=== PATIENT | male | born 1975 | race Caucasian/White ===

== ENCOUNTER 2025-08-17 10:34 | Outpatient (REF) | payer OTHER, SELFPAY ==
--- OUTSIDE RECORDS SUMMARY | 2025-08-17 13:52 | XMS_ITS | Clinical Summary ---
Author Organization [facility] Prior to 02/10/25 Address [address] [place] [address] Care Team Providers Care It Software Engineer Name Role Phone Jonathan Castro MD Primary Care Provider [phone] Allergies No known active allergies Medications Medication Sig Dispensed Refills Start Date End Date Status hydrOXYzine (VISTARIL) 50 MG capsuleIndications:A nxiety Take 1 capsule (50 mg total) by mouth every 6 (six) hours as needed for itching (anxiety/agitatio n). 30 capsule 0 03/06/2020 Active escitalopram (LEXAPRO) tablet 10 mgIndications:Genera lized Anxiety Disorder,Major Depressive Disorder Take 1.5 tablets (15 mg total) by mouth every night at bedtime. 45 tablet 0 03/06/2020 Active traZODone (DESYREL) 100 MG tabletIndications:In somnia Take 1 tablet (100 mg total) by mouth every night at bedtime as needed for sleep (insomnia). 30 tablet 0 03/06/2020 Active QUEtiapine (SEROquel) 25 MG tabletIndications:De pressive Phase Bipolar Mood Disorder,Generalized Anxiety Disorder Take 1 tablet (25 mg total) by mouth 2 (two) times a day. 60 tablet 0 03/06/2020 Active QUEtiapine (SEROquel) 50 MG tabletIndications:Ge neralized Anxiety Disorder,Major Depressive Disorder Take 1 tablet (50 mg total) by mouth every night at bedtime. 30 tablet 0 03/06/2020 Active folic acid (FOLVITE) tablet 1 mgIndications:supple ment Take 1 tablet (1 mg total) by mouth daily. 30 tablet 0 03/06/2020 Active propranolol (INDERAL) 20 MG tabletIndications:Hy pertension,anxiety Take 1 tablet (20 mg total) by mouth 2 (two) times a day. 60 tablet 0 03/06/2020 Active thiamine 100 MG tabletIndications:matias pplement Take 1 tablet (100 mg total) by mouth daily. 30 tablet 0 03/06/2020 Active Active Problems Problem Noted Date Diagnosed Date MDD (major depressive disord er), recurrent severe, without psychosis 02/28/2020 Tinnitus of both ears 09/21/2018 Overview: Overview: Referred to ent. 10/01 Sleeping difficulty 05/21/2016 Erectile dysfunction 05/13/2016 Vitamin D deficiency 05/12/2016 Family History Medical History Relation Name Comments Immunodeficiency Neg Hx Social History Tobacco Use Types Packs/Day Years Used Date Smoking Tobacco: Never Smokeless Tobacco: Never Tobacco Cessation:Counseling Given: No Alcohol Use Standard Drinks/Week Comments Yes 28 (1 standard drink = 0.6 oz pu re alcohol) 3 to 4 drinks per day Sex and Gender Information Value Date Recorded Sex Assigned at Male 02/07/2019 12:26 PM EDT Gender Identity Male 02/28/2020 8:08 PM EDT Sexual Orientation Straight 02/28/2020 8: 08 PM EDT Job Start Date Occupation Industry Not on file Not on file Not on file Last Filed Vital Signs Vital Sign Reading Time Taken Comments Blood Pressure 115/79 03/06/2020 9:22 AM EDT Pulse 93 03/06/2020 9:22 AM EDT Temperature 36.9 C (98.4 F) 03/06/2020 9:21 AM EDT Respiratory Rate 17 03/06/2020 9:22 AM EDT Oxygen Saturation 100% 03/06/2020 9:22 AM EDT Inhaled Oxygen Concentration - - Weight 93.2 kg (205 lb 6.4 oz) 03/03/2020 8:39 A M EDT Height 177.8 cm (5' 10 ) 02/28/2020 11:19 PM EDT Body Mass Index 29.47 02/28/2020 11:19 PM EDT Plan of Treatment Not on file Advance Directives For more information, please contact: [phone] Latest Code Status on File Code Status Date Activated Date Inactivated Comments Full Code 02/28/2020 11:40 PM 03/06/2020 5:57 PM This code status was ascertained in the following way: per unit protocol. Care Teams It Software Engineer Relationship Specialty Start Date End Date Jonathan Castro MD PCP - General Photoengraving Photographer 02/06/18
--- OUTSIDE RECORDS SUMMARY | 2025-08-17 13:52 | XMS_ITS | Clinical Summary ---
Author Organization [facility] [address] [facility] [address] Address [address] [place] [address] Phone Care Team Providers Care Transition Rn Name Role Phone Karen Castro MD Primary Care Provider [phone] Allergies No known active allergies Medications No known medications Active Problems Problem Noted Date Diagnosed Date Prediabetes 05/19/2022 Alcohol abuse 04/24/2021 Depression 03/18/2020 Overview (06/12/2024): hosp 03/02 Tinnitus of both ears 09/21/2018 Overview (06/12/2024): Referred to ent. 10/01 Sleeping difficulty 05/21/2016 Erectile dysfunction 05/13/2016 Vitamin D deficiency 05/12/2016 Encounters Date Type Department Care Team Description 08/08/2025 Results Follow-Up Pediatrics - [address] [address] Lacey Arenas PA 08/07/2025 9:15 AM EST Lab Draw Station - [address] [address] Erectile dysfunction, unspecified erectile dysfunction type; Screening for diabetes mellitus 07/30/2025 2:00 PM EST Office Visit Adult Medicine - [address] [phone] Lacey Arenas PA Encounter for annual physical exam (Primary Dx); Screening for diabetes mellitus; Erectile dysfunction, unspecified erectile dysfunction type 07/05/2025 4:06 PM EDT - 07/05/2025 11:59 PM EDT Hospital Encounter Radiology Department - [address] [address] Radiculopathy, lumbar region; Spondylosis, unspecified Discharge Disposition: Home or Self Care 2025 1:30 PM EDT Telemedicine Adult Medicine - [place] [address] [place] [address] Donna De La Paz NP Acute low back pain with sciatica, sciatica laterality unspecified, unspecified back pain laterality (Primary Dx) 06/15/2025 Telephone Adult Medicine - [place] [address] [place] [address] Donna De La Paz NP from Last 3 Months Immunizations Immunization Administration Dates Next Due Influenza Quadravalent, MDCK , 0.5ml, preservative free (Flucelvax) 6mo and older 05/31/2023 Influenza trivalent, with pr eservative (Fluzone; Afluria) 6mo and older 06/27/2024 Influenza, Unspecified 05/14/2025,07/19/2018 Tdap Tetanus diptheria acell ular pertussis (Boostrix; Adacel) 7yo and older 03/15/2018 Surgical History Surgery Date Site/Laterality Comments HAND SURGERY PROCEDURE: RI UNLISTED PROCEDURE HANDS/FINGERS Medical History Medical History Date Comments Vitamin D deficiency 05/12/2016 DX:Vitamin D deficiency Erectile dysfunction 05/13/2016 DX:Erectile dysfunction Family History Medical History Relation Name Comments Other: denies Other 1 Relation Name Status Comments Other 1 Other 2 Social History Tobacco Use Types Packs/Day Years Used Date Smoking Tobacco: Never Smokeless Tobacco: Never Tobacco Cessation:Counseling Given: Not Answered Alcohol Use Standard Drinks/Week Comments Yes 7 (1 standard drink = 0.6 oz pur e alcohol) Housing Instability Answer Date Recorde d Are you worried that in the next 2 months you may not have stable housing? No 06/11/2025 Food Access & Nutrition Answer Date Rec orded Do you have access to a vari ety of food including fruits and vegetables? No 06/11/2025 Financial Risk Answer Date Recorded How hard is it for you to pa y for the very basics like food, housing, medical care, and air conditioning / heating? Not very hard 06/11/2025 Food Risk Answer Date Recorded Within the past 12 months we worried whether our food would run out before we got money to buy more. Never true 06/11/2025 Within the past 12 months th e food we bought just didn't last and we didn't have money to get more. Never true 06/11/2025 Living Situation Answer Date Recorded What is your living situation? Unrecognized valu e 06/11/2025 Sex and Gender Information Value Date Recorded Sex Assigned at Not on file Legal Sex Male 10:30 PM EST Gender Identity Not on file Sexual Orientation Not on file Obstetrics History Last Filed Vital Signs Vital Sign Reading Time Taken Comments Blood Pressure 118/83 07/30/2025 2:00 PM EST Pulse 70 07/30/2025 2:00 PM EST Temperature 36.7 C (98 F) 01/16/2025 9:53 AM EDT Respiratory Rate - - Oxygen Saturation 98% 07/30/2025 2:00 PM EST Inhaled Oxygen Concentration - - Weight 92.4 kg (203 lb 12.8 oz) 07/30/2025 2:00 PM EST Height 177.8 cm (5' 10 ) 01/16/2025 9:53 AM EDT Body Mass Index 29.24 01/16/2025 9:53 AM EDT Plan of Treatment Health Maintenance Due Date Last Done Comments Hepatitis A Vaccines (1 of 2 - Risk 2-dose series) 1994 Hepatitis B Vaccines (1 of 3 - 19+ 3-dose series) 1994 HIV Screening 08/21/2022 Hepatitis C Screening 08/21/2022 COVID-19 Vaccine (3 - 2024- season) 2025 10/30/2020, 10/03/2020 Pneumococcal Vaccine: 50+ Years (1 of 1 - PCV) 2025 Zoster Vaccines (1 of 2) 2025 Social Influencers of Health Screening 06/11/2026 06/11/2025 DTaP,Tdap,and Td Vaccines (2 - Td or Tdap) 03/15/2028 03/15/2018 Cholesterol Screening (Lipid Panel) 03/23/2029 03/23/2024, 03/23/2024, 03/03/2020 Colorectal Cancer Screening: Colonoscopy 01/26/2033 01/26/2023 RSV Immunization Adult Patients (1 - 1-dose 75+ series) 2050 Influenza Vaccine Completed 05/14/2025, , 05/31/2023, Additional history exists Depression Screening Completed 06/11/2025 HIB Vaccines Aged Out No longer eligi ble based on patient's age to complete this topic HPV Vaccines Aged Out No longer eligi ble based on patient's age to complete this topic IPV Vaccines Aged Out No longer eligi ble based on patient's age to complete this topic MMR Vaccines Aged Out No longer eligi ble based on patient's age to complete this topic Meningococcal ACWY Vaccine Aged Out N o longer eligible based on patient's age to complete this topic Meningococcal B Vaccine Aged Out No l onger eligible based on patient's age to complete this topic RSV Immunization Patients Under 20 months Aged Out No longer eligible based on patient's age to complete this topic Varicella Vaccines Aged Out No longer eligible based on patient's age to complete this topic Procedures Procedure Name Priority Date/Time Associated Diagnosis Comments HEMOGLOBIN A1C Routine 08/07/2025 9:14 AM EST Screening for diabetes mellitus THYROID STIMULATING HORMONE WITH REFLEX TO FREE T4 AND FREE T3 Routine 08/07/2025 9:14 AM EST Erectile dysfunction, unspecified erectile dysfunction type COMPREHENSIVE METABOLIC PANEL Routine 08/07/2025 9:14 AM EST Screening for diabetes mellitus TESTOSTERONE FREE, BIOAVAILABLE AND TOTAL Routine 08/07/2025 9:14 AM EST Erectile dysfunction, unspecified erectile dysfunction type MR LUMBAR SPINE WO CONTRAST Routine 07/05/2025 5:02 PM EDT Radiculopathy, lumbar region Spondylosis, unspecified LIPID PANEL Routine 03/23/2024 HM COLONOSCOPY Routine 01/26/2023 from Last 3 Months or Most Recently Relevant to Health Maintenance Results * Thyroid stimulating hormone with reflex to free t4 and free t3 (08/07/2025 9:14 AM EST) TSH 2.88 0.40 - 4.00 mcIU/mL 08/07/2025 12:22 PM [facility] Blood Venous blood specimen / Unknown Venipuncture / Unknown 08/07/2025 9:14 AM EST 08/07/2025 9:14 AM EST us Lacey FLYNN LAB BLOOD ORDERABLES Final Resul t [facility] [address] [place] [address], * Testosterone free, bioavailable and total (08/07/2025 9:14 AM EST) Testosterone 307 229 - 902 ng/dL 08/07/2025 2:51 PM [facility] Comment:Over the counter sup plements containing high doses of biotin may interfere with this assay. If interference is suspected, patients shoud be retested after refraining from biotin supplements for 72 hours. Testosterone, Free 5.3 4.6 - 22.4 ng/dL 08/07/2025 2:51 PM [facility] Testosterone, Bioavailable 124 110 - 575 ng/dL 08/07/2025 2:51 PM [facility] Sex Hormone Binding 40.3 See Comment nmol/L 08/07/2025 2:51 PM [facility] Comment: FEMALES: pre-menopausal 10.8 - >180 post-menopausal 23.2 - 159.1 MALES: 21-49 years 14.6 - 94.6 50-89 years 21.6 - 113.1 CHILDREN: No established reference range Over the counter supplements containing high doses of biotin may interfere with this assay. If interference is suspected, patients should be retested after refraining from biotin supplements for 72 hours. Albumin 4.3 3.2 - 5.0 g/dL 08/07/2025 2:51 PM EST [facility] Blood Venous blood specimen / Unknown Venipuncture / Unknown 08/07/2025 9:14 AM EST 08/07/2025 9:14 AM EST Lacey FLYNN LAB BLOOD ORDERABLES Final Resul t Performing Organization Address [facility]/ZIP Co de Phone Number [facility] [address] [place] [address], [place] [phone] * Hemoglobin A1c (08/07/2025 9:14 AM EST) Pathologist [facility] Hemoglobin A1C 5.5 <6.5 % LAB CHEMISTRY METHOD 08/07/2025 1:40 PM EST [facility] Mean Bld Glu Estim. 111 mg/dL LAB CHEMISTRY METHOD 08/07/2025 1:40 PM [facility] Blood Venous blood specimen / Unknown Venipuncture / Unknown 08/07/2025 9:14 AM EST 08/07/2025 9:14 AM EST Lacey FLYNN LAB BLOOD ORDERABLES Final Resul t Performing Organization Address [facility]/ZIP Co de Phone Number [facility] [address] [place] [address], [place] [phone] * (ABNORMAL) Comprehensive metabolic panel (08/07/2025 9:14 AM EST) [facility] Sodium 141 133 - 145 mmol/L 08/07/2025 12:31 PM EST [facility] Potassium 4.4 3.5 - 5.5 mmol/L 08/07/2025 12:31 PM EST [facility] Chloride 105 96 - 110 mmol/L 08/07/2025 12:31 PM [facility] CO2 28 21 - 32 mmol/L 08/07/2025 12:31 PM [facility] Anion Gap 8 3 - 11 08/07/2025 12:31 PM [facility] Glucose 107(H) 70 - 100 mg/dL 08/07/2025 12:31 PM [facility] BUN 34(H) 5 - 25 mg/dL 08/07/2025 12:31 PM [facility] Creatinine 1.09 0.70 - 1.30 mg/dL 08/07/2025 12:31 PM [facility] eGFR 83 >=60 mL/min/1. 73m2 08/07/2025 12:31 PM [facility] Comment:Calculation based on the Chronic Kidney Disease Epidemiology Collaboration (CKD-EPI) equation refit without adjustment for race. BUN/Creatinine Ratio 31.2 08/07/2025 12:31 PM [facility] Calcium 9.7 8.5 - 10.5 mg/dL 08/07/2025 12:31 PM [facility] AST (SGOT) 31 10 - 42 unit/L 08/07/2025 12:31 PM [facility] ALT (SGPT) 34 10 - 60 unit/L 08/07/2025 12:31 PM [facility] Alkaline Phosphatase 75 42 - 121 unit/L 08/07/2025 12:31 PM [facility] Total Protein 6.8 6.0 - 8.0 g/dL 08/07/2025 12:31 PM [facility] Albumin 4.3 3.2 - 5.0 g/dL 08/07/2025 12:31 PM [facility] Total Bilirubin 0.5 0.0 - 1.4 mg/dL 08/07/2025 12:31 PM [facility] Blood Venous blood specimen / Unknown Venipuncture / Unknown 08/07/2025 9:14 AM EST 08/07/2025 9:14 AM EST us Lacey FLYNN LAB BLOOD ORDERABLES Final Resul t [facility] [address] [place] [address], [place] [phone] * MR Lumbar Spine wo Contrast (07/05/2025 5:02 PM EDT) Anatomical Region Laterality Modality L-spine, Spine Magnetic Resonan ce 07/08/2025 2:49 PM EDT Narrative 07/08/2025 2:54 PM EDT MRI of the lumbosacral spine without intravenous contrast. History lumbar radiculitis. Examination was performed on 1.5 Leda magnet. No previous MRI examinations are available for comparison. Conus medullaris terminates at L1-2 level. Vertebral bodies are maintained in height. At T12-L1 level no focal disc herniation spinal stenosis or nerve root compression. At L1-2 level there is mild bulging of the disc and mild hypertrophy of the facet joints. No focal disc herniation spinal stenosis or nerve root compression. L2-3 disc is desiccated. There is diffuse bulging of the disc, there are hypertrophic changes in the facet joints. There is stenosis of the lateral recesses and L2 neural foramina. There is possible compression of the L2 nerve roots. There is mild spinal stenosis. At L3-4 level disc is decreased in T2 signal. There is broad base protrusion of the disc. There is hypertrophy of the facet joints. There is stenosis of the lateral recesses and L3 neural foramina. There is possible compression of the L3 nerve roots. There is mild spinal stenosis. At L4-5 level disc is decreased in T2 signal. There is arm tear of the annulus fibrosis and small central extrusion of the disc. There are hypertrophic changes in the facet joints. There is narrowing of the lateral recesses and L4 neural foramina. There is compression of the L4 nerve roots. There is no spinal stenosis. At L5-S1 level there is minimal anterior displacement of L5 over S1. There is no focal disc herniation spinal stenosis or nerve root compression. Perivertebral soft tissues are unremarkable. CONCLUSIONS: Multilevel bony and discs degenerative changes with mild spinal stenosis at L2-3 and L3-4 levels. Stenosis of the lateral recesses and neural foramina at multiple levels with possible compression of the L2 nerve roots, possible compression of the L3 nerve roots, compression of the L4 nerve roots. -------- FINAL REPORT -------- Dictated By: Dodie Perea Dictated Date: 07/08/2025 14:49 ET Assigned Physician: Dodie Perea Reviewed and Electronically Signed By: Dodie Perea Signed Date: 07/08/2025 14:54 ET Workstation ID: [id number] Transcribed By: Self Edit Transcribed Date: 07/08/2025 14:49 ET Procedure Note Dodie Perea MD - 07/08/2025 MRI of the lumbosacral spine without intravenous contrast. History lumbar radiculitis. Examination was performed on 1.5 Leda magnet. No previous MRIexaminations are available for comparison. Conus medullaris terminates at L1-2 level. Vertebral bodies are maintainedin height. At T12-L1 level no focal disc herniation spinal stenosis or nerve rootcompression. At L1-2 level there is mild bulging of the disc and mild hypertrophy ofthe facet joints. No focal disc herniation spinal stenosis or nerve rootcompression. L2-3 disc is desiccated. There is diffuse bulging of the disc, there arehypertrophic changes in the facet joints. There is stenosis of the lateralrecesses and L2 neural foramina. There is possible compression of the G3xgeis roots. There is mild spinal stenosis. At L3-4 level disc is decreased in T2 signal. There is broad baseprotrusion of the disc. There is hypertrophy of the facet joints. There isstenosis of the lateral recesses and L3 neural foramina. There is possiblecompression of the L3 nerve roots. There is mild spinal stenosis. At L4-5 level disc is decreased in T2 signal. There is arm tear of theannulus fibrosis and small central extrusion of the disc. There arehypertrophic changes in the facet joints. There is narrowing of thelateral recesses and L4 neural foramina. There is compression of the U9jzzdi roots. There is no spinal stenosis. At L5-S1 level there is minimal anterior displacement of L5 over S1. Thereis no focal disc herniation spinal stenosis or nerve root compression. Perivertebral soft tissues are unremarkable. CONCLUSIONS: Multilevel bony and discs degenerative changes with mild spinal stenosisat L2-3 and L3-4 levels. Stenosis of the lateral recesses and neuralforamina at multiple levels with possible compression of the L2 nerveroots, possible compression of the L3 nerve roots, compression of the F2dulal roots. -------- FINAL REPORT -------- Dictated By: Dodie Perea Dictated Date: 07/08/2025 14:49 ET Assigned Physician: Dodie Perea Reviewed and Electronically Signed By: Dodie Perea Signed Date: 07/08/2025 14:54 ET Workstation ID: [id number] Transcribed By: Self Edit Transcribed Date: 07/08/2025 14:49 ET Bakari FLYNN IMG MRI PROCEDURES Final Resul t * (ABNORMAL) Lipid panel (03/23/2024) LDL/HDL Ratio 3 0 - 4 Triglycerides 178(A) 0 - 150 mg/dL Cholesterol 165 0 - 200 mg/dL HDL 60 >=40 mg/dL LDL Cholesterol 70 0 - 100 mg/dL Blood Venous blood specimen / Unknown Historical Provider LAB BLOOD ORDERABLES Carole l Result * Colonoscopy (01/26/2023) Pathologist [facility] Colonoscopy no interpretation , abstracted Anatomical Region Laterality Modality Other Historical Provider HEALTH MAINTENANCE Final Result from Last 3 Months or Most Recently Relevant to Health Maintenance Insurance [facility] Care Teams Transition Rn Relationship Specialty Start Date End Date Karen Castro MD [address] [place] [id number] PCP - General Professor Of Psychiatry 05/20/16
--- OUTSIDE RECORDS SUMMARY | 2025-08-17 13:52 | XMS_ITS | Encounter Summary ---
Author Organization [facility] [place] [address] Care Team Providers Care Manager Gift Name Role Phone Karen Castro MD Primary Care Provider [phone] Encounter Details Date Type Department Care Team ([facility] Contact Info) Description 08/08/2025 Results Follow-Up Pediatrics - [place] [address] [place] [phone] Lacey Arenas PA [address] [place] [phone] Social History Tobacco Use Types Packs/Day Years Used Date Smoking Tobacco: Never Smokeless Tobacco: Never Alcohol Use Standard Drinks/Week Comments Yes 7 [...] on file Sexual Orientation Not on file documented as of this encounter Plan of Treatment Not on file documented as of this encounter Visit Diagnoses Not on filedocumented in this encounter Additional Health Concerns Assessment Noted Time PHQ-9 Depression Total Score: 0 06/11/20 25 9:18 AM EDT documented as of this encounter Care Teams Manager Gift Relationship Specialty Start Date End Date Karen Castro MD [address] [place] [address] PCP - General Inclusion Internship 05/20/16 documented as of this encounter
--- OUTSIDE RECORDS SUMMARY | 2025-08-17 13:52 | XMS_ITS | Clinical Summary ---
Author Organization [facility] Address [address] [place] [phone] Care Team Providers Care Campus Aide Name Role Phone Unavailable Primary Care Provider Unavailabl e Social History Tobacco Use Types Packs/Day Years Used Date Smoking Tobacco: Never Assessed Sex and Gender Information Value Date Recorded Sex Assigned at Not on file Legal Sex Male 11:06 AM EDT Gender Identity Not on file Sexual Orientation Not on file Plan of Treatment Health Maintenance Due Date Last Done Comments HIV screening 1988 Hepatitis C screening 1993 Tetanus adult (Td q 10,TDAP once) 1995 Lipid disorder screening 2015 Colon cancer screening, Colonoscopy 2020 Diabetes screening 2020 Influenza vaccine 04/13/2025 Covid-19 vaccine series (1 - 2024-26 season) 2025 Pneumococcal Vaccine (50+ ye ars) (1 of 1 - PCV) 2025 Shingles vaccine (Shingrix) (1 of 2 - Shingrix (RZV) 2 Dose Standard Series) 2025 RSV Immunization (1 - 1-dose 75+ series) 2050 Meningococcal B Vaccine Aged Out No l onger eligible based on patient's age to complete this topic Meningococcal Vaccine Aged Out No serina teresa eligible based on patient's age to complete this topic
--- OUTSIDE RECORDS SUMMARY | 2025-08-17 13:52 | XMS_ITS | Encounter Summary ---
Author Organization [facility] Address [address] [place] [address] Care Team Providers Care Consumer Relations Specialist Name Role Phone Unavailable Primary Care Provider Unavailabl e Encounter Details Date Type Department Care Team (Late st Contact Info) Description 07/28/2024 Scanned Document [facility] [employer] [address] [place] [address] External, Provider Social History Tobacco Use Types Packs/Day Years Used Date Smoking Tobacco: Never Assessed Sex and Gender Information Value Date Recorded Sex Assigned at Not on file Legal Sex Male 11:06 AM EDT Gender Identity Not on file Sexual Orientation Not on file documented as of this encounter Plan of Treatment Not on file documented as of this encounter Procedures Procedure Name Priority Date/Time Associated Diagnosis Comments US RESULT SCAN Routine 07/28/2024 9:57 AM EST documented in this encounter Results * US Result Scan (07/28/2024 9:57 AM EST) us Provider External IMG SCAN REPORTS Final Result documented in this encounter Visit Diagnoses Not on filedocumented in this encounter
== END 2025-08-17 10:35 | disposition home or self-care (01) ==
LOC: HO.HPHYSR 10:34
PROVIDERS: Visit Provider Physical Medicine & Rehabilitation
DX: M54.16 Radiculopathy, lumbar region (principal)
CPT/HCPCS: 62323; J2003; J3301; Q9967

== ENCOUNTER 2025-08-17 10:34 | Outpatient (AMB) | payer OTHER, SELFPAY ==
[2025-08-17 10:56] VITALS: TEMP 37.1; BMI 27.3
--- NOTE | 2025-08-17 10:56 | A.PHYSOV_ITS ---
Vital Signs 08/17/25 10:56 Height 5 ft 10 in Weight 190 lb BMI 27.3 Temp 98.7 F Intake Visit Reasons: Lumbar Interlaminar Epidural Injection L4-5 Allergies No Known Allergies Allergy (Verified 08/17/25 10:56) [facility] History (Updated 08/17/25 @ 11:17 by Ronal Guillen DO) Lumbar radiculitis Social History (Updated 08/15/25 @ 12:52 by Elmira Stallworth MA) Household Members: Spouse Alcohol intake: current Alcohol intake frequency: does not drink Use of substances other than those prescribed or required for medical reasons: No Physical Exam Vital Signs: Last Vital Signs Temp 98.7 F 08/17/25 10:56 BMI result Body Mass Index 27.3 Office Procedures Procedure Details: Procedure performed: L4-L5 lumbar epidural steroid injection Preop diagnosis: Lumbar radiculitis Postop diagnosis: The same Anesthesia: Local After informed consent was obtained patient was brought into the procedure room and placed in the prone position on the procedure table. Skin over the lumbar sacral area was prepped and draped in usual sterile manner. L4-L5 interlaminar space was visualized utilizing fluoroscopy. After skin was anesthetized with 1% lidocaine solution, 3.5 in 20 gauge Toughy needle was introduced percutaneously and advanced toward the epidural space at the indicated level. Loss of resistance technique was utilized. Needle placement was verified utilizing 3 cc of Omnipaque contrast solution. Excellent epidural spread was visualized without evidence of vascular uptake. Total volume of 8 cc containing 2 cc of 1% lidocaine, 40 mg of triamcinolone and normal saline solution were injected after negative aspiration for blood and cerebrospinal fluid. Radiation exposure was documented in the chart. Lumbar Interlaminar Epidural 37342- use with FL Gd order: Lumbar Interlaminar Epidural Steroid Injection 16085 Procedure code (CPT) selection complete Office Meds Kenalog 40 mg/mL suspension for injection Performing Provider: Ronal Guillen DO Performing Location: [facility] Administered by: Ronal Guillen DO on 08/17/25 11:17 Dose Route Admin Location Dispensed Lot Number Expiration Date [employer] 40 mg epidural 1 mL [address]-7 [employer] Total Dispensed Waste 1 mL 0 % lidocaine (PF) 10 mg/mL (1 %) injection solution Performing Provider: Ronal Guillen DO Performing Location: [facility] Administered by: Ronal Guillen DO on 08/17/25 11:17 Dose Route Admin Location Dispensed Lot Number Expiration Date [facility] [employer] 50 mg epidural 5 mL [id number] [employer] Total Dispensed Waste 5 mL 0 % Omnipaque 300 300 mg iodine/mL intravenous solution Performing Provider: Ronal Guillen DO Performing Location: [facility] Administered by: Ronal Guillen DO on 08/17/25 11:17 Dose Route Admin Location Dispensed Lot Number Expiration Date [facility] [employer] 3 mL epidural 10 mL [id number] [facility] ARE Total Dispensed Waste 10 mL 70 % Assessment & Plan Assessment & Plan (1) Lumbar radiculitis: Code(s): M54.16 - Radiculopathy, lumbar region Category: Medical Plan: Procedure Plan Procedure Orders: Orders FL Gd L Spine Interlaminar Inj Today M54.16 - Radiculopathy, lumbar region AMB Lumbar Interlaminar Epidural Steroid Injection Today M54.16 - Radiculopathy, lumbar region Scribe Plan - Not visible on output: Procedure was performed Coding Level of Care Code Procedure Only Diagnoses Lumbar radiculitis M54.16 CPT Codes Lumbar Interlaminar Epidural Steroid I - 41193 - Lumbar Interlaminar Epidural: Lumbar Interlaminar Epidural Steroid Injection [id number] ([id number])
== END 2025-08-17 11:38 | disposition home or self-care (01) ==
LOC: HO.HPHYS 10:34
PROVIDERS: Visit Provider Physical Medicine & Rehabilitation
DX: M54.16 Radiculopathy, lumbar region (principal)
CPT/HCPCS: 62323